=== PATIENT | male | born 1970 ===

== ENCOUNTER 2024-03-23 08:33 | Day surgery (SDC) | payer OTHER ==
[2024-03-16 08:21] LABS: HEMATOCRIT 41.9 % (39.0-48.0); HEMOGLOBIN 14.2 g/dL (13-16.00); MEAN CELL VOLUME 93.5 fL (80.0-100.00); MEAN CORPUSCULAR HEMOGLOBIN 31.7 pg (27.00-32.0); MEAN CORPUSCULAR HGB CONC 33.9 g/dl (32.0-36.0); PLATELET COUNT 181 K/uL (150-450); RED BLOOD COUNT 4.48 M/uL (4.00-6.00); RED CELL DISTRIBUTION WIDTH 12.8 % (11.5-14.5)
[2024-03-16 08:21] LABS: PH,URINE 5.5 (5.0-8.0); URINE APPEARANCE Clear; URINE BILIRRUBIN Negative (NEGATIVE); URINE BLOOD Negative; URINE COLOR Yellow; URINE GLUCOSE Negative (NEGATIVE); URINE KETONE Negative (NEGATIVE); URINE LEUKOCYTE Negative; URINE NITRATE Negative; URINE PROTEIN Negative (NEGATIVE); URINE UROBILINOGEN 0.2 E.U./dl
[2024-03-16 08:26] LABS: URINE EPITHELIAL CELLS 1.7 uL (0.0-38.8); URINE RBC 2.1 uL (0.0-20.8)
[2024-03-16 08:29] LABS: PARTIAL THROMBOPLASTIN TIME 30.9 SECONDS (22.0-34.0); PROTHROMBIN TIME 10.9 SECONDS (9.0-11.5)
[2024-03-16 08:30] LABS: URINE BACTERIA 3.7 uL (0.0-1933); URINE WBC 0.4 uL (0.0-23.2)
[2024-03-16 09:18] LABS: ALBUMIN 3.9 gm/dL (3.4-5.0); BILIRUBIN TOTAL 1.52 mg/dL (0.3-1.2); CALCIUM 9.3 mg/dL (8.5-10.1); CREATININE SERUM 1.06 mg/dL (0.70-1.30); GFR 73.08; GLOBULINA 3.5 G/DL (2.4-3.5); POTASSIUM 4.38 mEq/L (3.5-5.1); TOTAL PROTEIN 7.4 gm/dL (6.4-8.2)
[~2024-03-23 08:33] MED LIST: CEFAZOLIN SODIUM 1,000 MG VIAL ONE; COZAAR100 MG PO; JENTADUETO 2.51 EAC2 PO; METFORMIN HCL1000 M2 PO; ZOLOFT50 MG PO
[2024-03-23] MEDS ORDERED: BUPIVACAINE HCL/MPF 0.5% 30ML VIAL ONE (10:27)
== END 2024-03-23 16:05 | disposition home or self-care (01) ==
LOC: CIR.AMB 08:33
PROVIDERS: ATTEND Orthopaedic Surgery Hand Surgery
DX: G56.21 Lesion of ulnar nerve, right upper limb (principal); Z88.4 Allergy status to anesthetic agent
CPT/HCPCS: 64890; 64910; L8699